=== PATIENT | female | born 2000 | race Caucasian/White ===

== ENCOUNTER 2021-05-07 06:30 | Inpatient (IN) ==
[2021-05-07] MEDS ORDERED: BETADINE SOLN ONE (06:54)
[2021-05-07] MEDS ORDERED: PITOCIN ONE (06:54)
[2021-05-07] MEDS ORDERED: D5 LR + PITOCIN 10 UNITS/L 10 UNITS/1,000 ML BAG IV ONE (06:55)
[2021-05-07] MEDS ORDERED: D5 1/2 NS 1,000 mL + PITOCIN 20 UNITS/L IV 20 UNITS/1,000 ML BAG IV ONE (06:55)
--- NOTE | 2021-05-07 07:19 | DR.OB ---
OB Quick Note - Assessment/Plan Assessment/Plan: L&D 05/07/21 at 7:15am S-No complaint. O-Afebrile,VSS FVI=442 with good LTV, +accel, no decel. CTX=none CVX=2cm/75%/-1/VTX AROM with clear fluid. IUPC and FSE placed. A-IUP at 39 1/7 weeks for induction P-Begin pitocin induction Anticipate
[2021-05-07] MEDS ORDERED: D5 1/2 NS 1,000 ML 1,000 ML IV SCH (07:59)
[2021-05-07] MEDS ORDERED: MORPHINE SULFATE INJ 2 MG INJ IVP PRN (07:59)
[2021-05-07] MEDS ORDERED: PITOCIN IVP ONE (07:59)
[2021-05-07] MEDS ORDERED: NUBAIN INJ 200 MG VIAL MULTIDOSE IVP PRN (07:59)
[2021-05-07] MEDS ORDERED: D5 LR + PITOCIN 10 UNITS/L 10 UNITS/1,000 ML BAG IV PRN (07:59)
[2021-05-07] MEDS ORDERED: PHENERGAN INJ 25 MG IM PRN ×2 (07:59→15:13)
[2021-05-07] MEDS ORDERED: REGLAN INJ 10 MG VIAL IVP PRN (07:59)
[2021-05-07] MEDS ORDERED: STADOL INJ IVP PRN (08:00)
[2021-05-07] MEDS: D5 1/2 NS 1,000 ML 1,000 ML IV ONE (08:25)
[2021-05-07] MEDS ORDERED: NAROPIN EPIDURAL 0.2% 100 ML ONE (08:58)
[2021-05-07] MEDS ORDERED: FENTANYL VIAL INJ 100 mcg ONE (08:58)
[2021-05-07] MEDS ORDERED: LR 1,000 ML IV 1,000 ML IV ONE (08:58)
--- NOTE | 2021-05-07 11:57 | DR.OB ---
OB Quick Note - Assessment/Plan Assessment/Plan: L&D 05/07/21 at 11:50am Pitocin=16mu/min. S-No complaint. s/p epidural. O-Afebrile,VSS RPR=173 with good LTV, +accel, no decel. CTX=q 1 1/2 to 2 min., about 45-55mmHg CVX=5-6cm/75%/0 A-IUP at 39 1/7 weeks for induction P-Continue pitocin induction Anticipate
--- NOTE | 2021-05-07 15:19 | DR.OB ---
OB Quick Note - Assessment/Plan Assessment/Plan: Delivery Note [employer] 05/07/21 at 15:02 Patient complete and pushing. Head delivered over intact perineum. No nuchal cord. Nose and mouth bulb suctioned. Body delivered over intact perineum. Cord clamped x 2 and cut. Infant handed to attendant. Cord sent for gases. Placenta delivered spontaneously / intact / 3 vessel cord. No CVX / vaginal / perineal tears. Viable female , VTX/OA, wt=7'12" and 9/9, stable to NBN. Mother stable to RR. SBF=[id number].
[2021-05-07] MEDS: D5 1/2 NS 1,000 ML 1,000 ML with PITOCIN 20 UNITS IV SCH ×4 (15:52→23:43)
[2021-05-07] MEDS ORDERED: ADACEL or BOOSTRIX TDaP VACCINE IM ONE (16:09)
[2021-05-07] MEDS ORDERED: MILK OF MAGNESIA PO PRN (16:09)
[2021-05-07] MEDS ORDERED: DERMOPLAST PAIN RELIEF SPRAY TOP PRN (16:09)
[2021-05-07] MEDS ORDERED: METHERGINE IM ONE (16:32)
[2021-05-07] MEDS: MOTRIN TAB 800 MG PO PRN (20:16)
[2021-05-07] MEDS ORDERED: AMBIEN PO PRN (21:00)
[2021-05-08 05:28] LABS: HEMATOCRIT 26.2 % (36.0-47.0); HEMOGLOBIN 8.6 g/dL (12.0-16.0)
[2021-05-08] MEDS: MOTRIN TAB 800 MG PO PRN (06:01)
[2021-05-08] MEDS: D5 1/2 NS 1,000 ML 1,000 ML with PITOCIN 20 UNITS IV SCH ×2 (08:13)
[2021-05-08] MEDS ORDERED: PROTONIX TAB 40 MG PO SCH (09:00)
[2021-05-08] MEDS ORDERED: PRENATAL PLUS PO SCH (09:00)
[2021-05-08 15:13] VITALS: BP 116/67
== END 2021-05-08 17:10 | disposition home or self-care (01) | DRG 807 ==
LOC: LD 06:44 → MED/SURG 16:10
PROVIDERS: ADMIT Specialist; ATTEND Specialist